=== PATIENT | male | born 1965 | race African-American/Black ===

== ENCOUNTER 2016-10-04 16:39 | Emergency (ER) | payer MEDICAID ==
[~2016-10-04] VITALS: Ht 180.3 cm; Wt 106.6 kg
[2016-10-04] MEDS ORDERED: [UNRECOGNIZED DRUG - OTHER] (17:05)
[2016-10-04 17:39] VITALS: BP_SYST 126; BP_SYST 131; BP_DIAS 79; BP_DIAS 81
[2016-10-04 18:23] LABS: TROPONIN I < 0.30 ng/mL (<=0.30)
[2016-10-04 18:55] LABS: CKMB 3.5 ng/mL (< 6.7)
--- NOTE | 2016-10-04 19:15 | Emergency Room Report ---
History of Present Illness General Chief Complaint: Pain Source: Patient Present Illness HPI 50-year-old male presents emergency department complaining of left forearm and upper arm pain in addition to intermittent right arm pain x4 days. Patient denies fall, trauma, erythema, bruising,swelling, increased temperature palpation, nausea, vomiting, strenuous activity, recent travel or hx of blood clots. Patient is worried that he is having a cardiac event. Patient reports history of high blood pressure, and cardiac problems that run in the family. Patient denies nausea, vomiting, abdominal pain. Patient denies hematuria or changes in color of the urine. Patient denies taking cholesterol medication. Denies CP, Palpitations, weakness, LOC, AMS, dizziness, Changes in Vision, Sensation, paresthesias, or a sudden severe headache. Allergies: Coded Allergies: No Known Allergies (Unverified , 10/04/16) Patient History Past Medical History: see triage record Past Surgical History: none Pertinent Family History: none Reviewed Nursing Documentation: PMH: Agreed, PSxH: Agreed Nursing Documentation-PMH Past Medical History: No History, Except For Hx Hypertension: Yes Review of Systems All Other Systems: negative except mentioned in HPI Physical Exam Vital Signs Date Time Temp Pulse Resp B/P Pulse Ox O2 Delivery O2 Flow Rate FiO2 10/04/16 17:02 98.4 72 20 131/81 98 Room Air Sp02 EP Interpretation: reviewed, normal General Appearance: no apparent distress, alert, GCS 15, non-toxic Head: normocephalic, atraumatic Eyes: bilateral eye PERRL, bilateral eye normal inspection ENT: hearing grossly normal, normal pharynx, no angioedema, normal voice Neck: full range of motion, supple/symm/no masses Respiratory: chest non-tender, lungs clear, normal breath sounds, speaking full sentences Cardiovascular #1: regular rate, rhythm, no edema Cardiovascular #2: 2+ radial (R), 2+ radial (L) Gastrointestinal: normal bowel sounds, non tender, soft, no guarding, no rebound Rectal: deferred Genitourinary: normal inspection, no CVA tenderness Musculoskeletal: back normal, gait/station normal, normal range of motion, non- tender, no calf tenderness, other - non tender, no swelling , no erythema, no bruising pt is NVI to both extremities and has good capillary refill, 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 Jasso is my supervising Physician whom patient management has been discussed with. Diagnostic Impression: Primary Impression: Myositis of forearm Qualified Codes: M60.9 - Myositis, unspecified ER Course Pt. presents to the ED c/o left forearm and right UE pain x 2 days. Ddx considered but are not limited to LA, contusion, DVT, PE, ACS, Shoulder strain, myositis, aortic dissection. Vital signs: are WNL, pt. is afebrile H&PE are most consistent with muscle pain, will r/o cardiac cause ORDERS: - EK BPM NSR no acute ST changes, not given ASA in ED. - Interpreted by Dr. Jasso -CMP: WNL -CK-MB: WNL -Total CK: mildly elevated at 778 -Troponins: WNL ED INTERVENTIONS: - none required at this time. pt. given re-assurance, and instructed to f/u with pcp for further evaluation as he is stable for continued outpatient evaluation of his CC. DISCHARGE: At this time pt. is stable for d/c to home. Will provide printed patient care instructions, and any necessary prescriptions. Care plan and follow up instructions have been discussed with the patient prior to discharge. Labs Test 10/04/16 18:00 Total Creatine Kinase 778 U/L (26-140) Creatine Kinase MB 3.5 ng/mL (< 6.7) Creatine Kinase MB Relative Index 0.4 Troponin I < 0.30 ng/mL (<=0.30) EKG Diagnostic Results Rate: normal - 67 BPM Rhythm: NSR ST Segments: no acute changes ASA given to the pt in ED: No PA Scribe Text interpreted by Dr. Jasso Last Vital Signs Date Time Temp Pulse Resp B/P Pulse Ox O2 Delivery O2 Flow Rate FiO2 10/04/16 17:39 20 131/81 98 Room Air 10/04/16 17:02 98.4 72 Disposition: HOME, SELF-CARE Condition: Stable Scripts Acetaminophen* (TYLENOL EXTRA STRENGTH*) 500 Mg Tablet 500 MG ORAL Q6H, #30 TAB 0 Refills Prov: Hanh Sears 10/04/16 Referrals: NON PHYSICIAN (PCP) Patient Instructions: Muscle Pain, Adult Additional Instructions: Take medications as directed. Follow up with PCP in 3-5 days . Return sooner to ED if new symptoms occur, or current symptoms become worse. Hanh Sears Oct 04, 2016 19:15
[2016-10-04 19:24] VITALS: BP 126/79
[2016-10-04] MEDS ORDERED: TYLENOL EXTRA500 MG ORAL (19:25)
--- NOTE | 2016-10-05 17:43 | Cardiology Report ---
APPROVED REPORT EKG Measurement Heart [id number] Normal sinus rhythm Normal ECG
== END 2016-10-04 19:44 | disposition home or self-care (01) ==
LOC: EMR 18:40
DX: M60.9 Myositis, unspecified (principal); I10 Essential (primary) hypertension
CPT/HCPCS: 36415; 82550; 82553; 84484; 93005; 99283

== ENCOUNTER 2016-11-22 08:05 | Emergency (ER) | payer MEDICAID ==
[~2016-11-22] VITALS: Ht 180.3 cm; Wt 105.2 kg
[~2016-11-22 08:05] MED LIST: TYLENOL EXTRA500 MG ORAL; [UNRECOGNIZED DRUG - OTHER]
[2016-11-22] MEDS ORDERED: TYLENOL EXTRA500 MG ORAL (08:50)
[2016-11-22] MEDS ORDERED: CYCLOBENZAPRINE10 MG ORAL (08:50)
[2016-11-22 09:00] VITALS: BP_SYST 120; BP_SYST 126; BP_DIAS 80; BP_DIAS 85
--- NOTE | 2016-11-22 09:53 | Emergency Room Report ---
History of Present Illness General Chief Complaint: Back Pain-No Injury Source: Patient Present Illness HPI 50-year-old male presents ED complaining of back pain. Notes having intermittent back pain since February of last year. Pain is throbbing, 5/10, localized to the right side radiating down right leg. Worse with twisting and bending. No other aggravating or relieving factors. Patient states pain has gotten recently worse as he has been moving furniture. Denies any dysuria or hematuria. Denies flank pain. Denies any bowel or bladder incontinence. Denies any leg weakness. Allergies: Coded Allergies: No Known Allergies (Unverified , 10/04/16) Patient History Past Medical History: HTN Past Surgical History: none Pertinent Family History: none Social History: Denies: alcohol use, drug use, smoking Immunizations: UTD Reviewed Nursing Documentation: PMH: Agreed, PSxH: Agreed Nursing Documentation-PMH Past Medical History: No History, Except For Hx Hypertension: Yes Review of Systems All Other Systems: negative except mentioned in HPI Physical Exam Vital Signs Date Time Temp Pulse Resp B/P Pulse Ox O2 Delivery O2 Flow Rate FiO2 11/22/16 08:23 98.1 66 14 133/88 98 Room Air Sp02 EP Interpretation: reviewed, normal General Appearance: no apparent distress, alert, GCS 15, non-toxic Head: normocephalic Eyes: bilateral eye PERRL, bilateral eye normal inspection ENT: normal ENT inspection Neck: normal inspection Respiratory: chest non-tender, lungs clear, normal breath sounds, speaking full sentences Cardiovascular #1: regular rate, rhythm, no edema Gastrointestinal: normal inspection Rectal: deferred Genitourinary: no CVA tenderness, no vertebral tenderness Musculoskeletal: tender - paraspinal Neurologic: alert, oriented x3, responsive, motor strength/tone normal, sensory intact, speech normal Psychiatric: normal inspection Skin: normal inspection Lymphatic: normal inspection Medical Decision Making Diagnostic Impression: Primary Impression: Back pain Qualified Codes: M54.41 - Lumbago with sciatica, right side; M54.42 - Lumbago with sciatica, left side; G89.29 - Other chronic pain ER Course Hospital Course 50-year-old male presents ED complaining of lower back pain. No evidence of trauma Differential diagnoses include: pyelonephritis, kidney stone, muscle strain, Lspine fracture Clinical course Patient placed on stretcher. After initial history physical exam reveals a middle-aged male in no acute distress. There is no vertebral body tenderness. No flank pain. No signs of bruising. No abdominal pain. Pain is paraspinal to the right lower back. Pain is likely muscular. No need for imaging at this time. Suspicion for renal pathology is low given location. Reassurance given Diagnosis - back pain Stable and discharged to home with prescription for tylenol, Flexeril. Followup with PMD. Return to ED if symptoms recur or worsen Last Vital Signs Date Time Temp Pulse Resp B/P Pulse Ox O2 Delivery O2 Flow Rate FiO2 11/22/16 08:23 98.1 66 14 133/88 98 Room Air Status: improved Disposition: HOME, SELF-CARE Condition: Stable Scripts Cyclobenzaprine Hcl* (FLEXERIL*) 10 Mg Tablet 10 MG ORAL TID Y for Muscle Spasm, #20 TAB Prov: PAYAM MORENO M.D. 11/22/16 Acetaminophen* (TYLENOL EXTRA STRENGTH*) 500 Mg Tablet 500 MG ORAL Q8H Y for Prn Headache/Temp > 101, #30 TAB 0 Refills Prov: PAYAM MORENO M.D. 11/22/16 Referrals: NON PHYSICIAN (PCP) Patient Instructions: Back Pain, Adult PAYAM MORENO M.D. Nov 22, 2016 09:53
== END 2016-11-22 09:05 | disposition home or self-care (01) ==
LOC: EMR 08:35
DX: M54.41 Lumbago with sciatica, right side (principal); M54.42 Lumbago with sciatica, left side; I10 Essential (primary) hypertension
CPT/HCPCS: 99284

== ENCOUNTER 2017-08-19 17:32 | Inpatient (IN) | payer MEDICAID ==
[~2017-08-19] VITALS: Ht 180.3 cm; Wt 108.9 kg
[~2017-08-19 17:32] MED LIST changes: +CYCLOBENZAPRINE10 MG ORAL
[2017-08-19 18:00] VITALS: BP 134/96
[2017-08-19] MEDS ORDERED: Albuterol/Ipratropium 3ml neb HHN ONE (18:00)
[2017-08-19] MEDS ORDERED: Enoxaparin 100mg Inj SUBQ ONE (18:30)
[2017-08-19 18:34] LABS: BASOPHILS % (AUTO) 2.4 % (0.0-2.0); EOSINOPHILS % (AUTO) 1.4 % (0.0-3.0); LYMPHOCYTES % (AUTO) 44.9 % (20.0-45.0); MEAN CORPUSCULAR HEMOGLOBIN 22.6 PG (27.0-31.0); MEAN CORPUSCULAR HGB CONC 30.5 G/DL (32.0-36.0); MEAN CORPUSCULAR VOLUME 74 FL (80-99); MEAN PLATELET VOLUME 6.3 FL (6.5-10.1); MONOCYTES % (AUTO) 7.4 % (1.0-10.0); NEUTROPHILS % (AUTO) 43.9 % (45.0-75.0); PLATELET COUNT 282 K/UL (150-450); RED BLOOD COUNT 5.89 M/UL (4.70-6.10); RED CELL DISTRIBUTION WIDTH 13.3 % (11.6-14.8)
[2017-08-19 18:47] LABS: PROTHROMBIN TIME 10.1 SEC (9.30-11.50)
[2017-08-19 18:50] LABS: ANION GAP 9 mmol/L (5-15); CALCIUM 9.5 MG/DL (8.5-10.1); CARBON DIOXIDE 28 MMOL/L (21-32); CHLORIDE 102 MMOL/L (98-107); CREATININE 1.4 MG/DL (0.55-1.30); GLOMERULAR FILTRATION RATE > 60 mL/min (>60); POTASSIUM 4.2 MMOL/L (3.5-5.1); SODIUM 139 MMOL/L (136-145)
[2017-08-19 19:02] LABS: ALANINE AMINOTRANSFERASE 43 U/L (12-78); ASPARTATE AMINO TRANSFERASE 31 U/L (15-37); TOTAL PROTEIN 8.3 G/DL (6.4-8.2)
--- NOTE | 2017-08-19 19:46 | Emergency Room Report ---
History of Present Illness General Chief Complaint: Chest Pain Source: Patient Present Illness HPI Patient 51-year-old male presented after increased left sided chest pain. Patient had onset of symptoms approximately 2 hour prior to arrival. Patient reports having a tight sensation in his chest. He denied prior cardiac history but states that he had prior history of hypertension high cholesterol. Patient nonsmoker. He states he took aspirin prior to arrival. He denies any fever. He had not been coughing.. he denies any leg pain or swelling. Pain is described as a pressure sensation. Allergies: Coded Allergies: No Known Allergies (Unverified , 10/04/16) Patient History Past Medical History: see triage record Reviewed Nursing Documentation: PMH: Agreed, PSxH: Agreed Nursing Documentation-PMH Hx Hypertension: Yes Review of Systems All Other Systems: negative except mentioned in HPI Physical Exam Vital Signs Date Time Temp Pulse Resp B/P (MAP) Pulse Ox O2 Delivery O2 Flow Rate FiO2 08/19/17 17:41 97.9 95 20 150/89 99 Room Air 08/19/17 18:00 99 Sp02 EP Interpretation: reviewed, normal General Appearance: normal inspection, well appearing, no apparent distress, alert, GCS 15 Head: atraumatic ENT: normal ENT inspection, hearing grossly normal, normal voice Neck: normal inspection, full range of motion, supple, no bony tend Respiratory: normal inspection, lungs clear, normal breath sounds, no respiratory distress, no retraction, no wheezing Cardiovascular #1: regular rate, rhythm, no edema Gastrointestinal: normal inspection, normal bowel sounds, non tender, soft, no guarding, no hernia Genitourinary: no CVA tenderness Musculoskeletal: normal inspection, back normal, normal range of motion Neurologic: normal inspection, alert, oriented x3, responsive, 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 Differential diagnosis included but was not limited to acute coronary syndrome, pulmonary embolism, pneumonia, aortic dissection, shingles, pneumothorax, aortic dissection, esophageal rupture, pericarditis. Because of complexity of patient's case laboratory testing and imaging studies were ordered.Patient was given Lovenox subcutaneous. Patient was Dr. horn for [facility]. The patient will be transferred for continuity of care. The patient insurance company was unable to arrange a timely transfer. The patient will be [facility] Labs Test 08/19/17 18:00 08/19/17 18:11 Urine Opiates Screen Negative (NEGATIVE) Urine Barbiturates Screen Negative (NEGATIVE) Phencyclidine (PCP) Screen Negative (NEGATIVE) Urine Amphetamines Screen Negative (NEGATIVE) Urine Benzodiazepines Screen Negative (NEGATIVE) Urine Cocaine Screen Negative (NEGATIVE) Urine Marijuana (THC) Screen Negative (NEGATIVE) White Blood Count 6.0 K/UL (4.8-10.8) Red Blood Count 5.89 M/UL (4.70-6.10) Hemoglobin 13.3 G/DL (14.2-18.0) Hematocrit 43.5 % (42.0-52.0) Mean Corpuscular Volume 74 FL (80-99) Mean Corpuscular Hemoglobin 22.6 PG (27.0-31.0) Mean Corpuscular Hemoglobin Concent 30.5 G/DL (32.0-36.0) Red Cell Distribution Width 13.3 % (11.6-14.8) Platelet Count 282 K/UL (150-450) Mean Platelet Volume 6.3 FL (6.5-10.1) Neutrophils (%) (Auto) 43.9 % (45.0-75.0) Lymphocytes (%) (Auto) 44.9 % (20.0-45.0) Monocytes (%) (Auto) 7.4 % (1.0-10.0) Eosinophils (%) (Auto) 1.4 % (0.0-3.0) Basophils (%) (Auto) 2.4 % (0.0-2.0) Prothrombin Time 10.1 SEC (9.30-11.50) Prothromb Time International Ratio 1.0 (0.9-1.1) Activated Partial Thromboplast Time 28 SEC (23-33) D-Dimer 0.76 mg/L FEU (0.00-0.49) Sodium Level 139 MMOL/L (136-145) Potassium Level 4.2 MMOL/L (3.5-5.1) Chloride Level 102 MMOL/L (98-107) Carbon Dioxide Level 28 MMOL/L (21-32) Anion Gap 9 mmol/L (5-15) Blood Urea Nitrogen 11 mg/dL (7-18) Creatinine 1.4 MG/DL (0.55-1.30) Estimat Glomerular Filtration Rate > 60 mL/min (>60) Glucose Level 109 MG/DL (74-106) Calcium Level 9.5 MG/DL (8.5-10.1) Total Bilirubin 0.4 MG/DL (0.2-1.0) Aspartate Amino Transf (AST/SGOT) 31 U/L (15-37) Alanine Aminotransferase (ALT/SGPT) 43 U/L (12-78) Alkaline Phosphatase 82 U/L (46-116) Troponin I 0.000 ng/mL (0.000-0.056) Pro-B-Type Natriuretic Peptide 5 pg/mL (0-125) Total Protein 8.3 G/DL (6.4-8.2) Albumin 4.2 G/DL (3.4-5.0) Globulin 4.1 g/dL Albumin/Globulin Ratio 1.0 (1.0-2.7) EKG Diagnostic Results Rate: normal Rhythm: NSR ST Segments: no acute changes Rhythm Strip Diag. Results EP Interpretation: yes Rhythm: NSR, no PVC's, no ectopy Last Vital Signs Date Time Temp Pulse Resp B/P (MAP) Pulse Ox O2 Delivery O2 Flow Rate FiO2 08/19/17 18:05 21 08/19/17 18:05 100 20 99 Room Air 08/19/17 18:00 98.1 134/96 Status: unchanged Disposition: XFER SHT-TRM HOSP Condition: Serious Referrals: [facility],REFERRING (PCP) Nahid Palacio Aug 19, 2017 19:46
[2017-08-19] MEDS ORDERED: dilTIAZem HCl 25mg/5ml Inj IV PRN (21:45)
[2017-08-19] MEDS ORDERED: Miralax 17gm pkt ORAL PRN (21:45)
[2017-08-19] MEDS ORDERED: Nitroglycerin Subl 0.4mg tab SL PRN (21:45)
[2017-08-19] MEDS ORDERED: Morphine Sulfate 2mg/ml Inj IVP PRN (21:45)
[2017-08-19] MEDS ORDERED: Ketorolac 30mg Inj IV PRN (21:45)
[2017-08-19] MEDS ORDERED: Enalaprilat 2.5mg/2ml Inj IV PRN (21:45)
[2017-08-19] MEDS ORDERED: Albuterol/Ipratropium 3ml neb HHN PRN (21:45)
[2017-08-19 22:19] VITALS: BP 134/96
[2017-08-20] VITALS (7 sets, daily range): BP systolic 136–147; BP diastolic 74–99
[2017-08-20 08:16] LABS: BASOPHILS % (AUTO) 1.5 % (0.0-2.0); EOSINOPHILS % (AUTO) 2.6 % (0.0-3.0); LYMPHOCYTES % (AUTO) 50.6 % (20.0-45.0); MEAN CORPUSCULAR HEMOGLOBIN 24.1 PG (27.0-31.0); MEAN CORPUSCULAR HGB CONC 32.9 G/DL (32.0-36.0); MEAN CORPUSCULAR VOLUME 73 FL (80-99); MEAN PLATELET VOLUME 6.6 FL (6.5-10.1); NEUTROPHILS % (AUTO) 38.2 % (45.0-75.0); PLATELET COUNT 294 K/UL (150-450); RED BLOOD COUNT 6.14 M/UL (4.70-6.10); WHITE BLOOD COUNT 6.5 K/UL (4.8-10.8)
[2017-08-20 08:34] LABS: PROTHROMBIN TIME 10.2 SEC (9.30-11.50)
[2017-08-20] MEDS: Aspirin Baby 81mg ORAL SCH (08:55)
[2017-08-20] MEDS: Heparin 5000 units/ml inj SUBQ SCH ×2 (09:00→22:36)
[2017-08-20 09:07] LABS: CHOLESTEROL 226 MG/DL (< 200); CHOLESTEROL/HDL RATIO 5.7 (3.3-4.4); THYROID STIMULATING HORMONE 3.774 uiU/mL (0.358-3.740)
[2017-08-20 09:09] LABS: CRP QUANT < 0.4 mg/dL (0.00-0.90)
--- NOTE | 2017-08-20 10:02 | Diagnostic Imaging Report ---
Indication: Shortness of breath Technique: XRAY CHEST 1 V Comparison: None Findings: The cardiomediastinal silhouette is within normal limits. There is no focal consolidation, pneumothorax or pleural effusion. Osseous structures demonstrate no acute abnormality. Impression: No acute cardiopulmonary disease.
--- NOTE | 2017-08-20 10:33 | History and Physical ---
History of Present Illness General Date patient seen: Aug 19, 2017 Reason for Hospitalization: Chest Pain Present Illness HPI 51-year-old male with hx of HTN, presented after increased left sided chest pain. Patient had onset of symptoms approximately 2 hour prior to arrival. Patient reports having a tight sensation in his chest. He is admitted to telemetry to rule out ACS. Allergies: Coded Allergies: No Known Allergies (Unverified , 10/04/16) Medication History Scheduled Acetaminophen* (Tylenol Extra Strength*), 500 MG ORAL Q6H Scheduled PRN Acetaminophen* (Tylenol Extra Strength*), 500 MG ORAL Q8H PRN for Prn Headache/ Temp > 101 Cyclobenzaprine Hcl* (Flexeril*), 10 MG ORAL TID PRN for Muscle Spasm Miscellaneous Medications [high blood ], (Reported) Patient History Healthcare decision maker Resuscitation status Do Not Resuscitate Advanced Directive on File Past Medical/Surgical History Past Medical/Surgical History: (1) Hypertension Review of Systems Cardiovascular: Reports: chest pain All Other Systems: negative except mentioned in HPI Physical Exam General Appearance: WD/WN Lines, tubes and drains: peripheral HEENT: normocephalic, anicteric Neck: non-tender, normal alignment Respiratory/Chest: chest wall non-tender, lungs clear Cardiovascular/Chest: normal peripheral pulses, normal rate Genitourinary/Rectal: normal genital exam Extremities: normal range of motion, non-tender Last 24 Hour Vital Signs Date Time Temp Pulse Resp B/P (MAP) Pulse Ox O2 Delivery O2 Flow Rate FiO2 08/20/17 08:00 97.8 81 19 147/99 98 Room Air 08/20/17 05:05 97.7 60 18 142/74 96 Room Air 08/20/17 04:00 70 08/20/17 04:00 98.4 64 18 142/74 95 Room Air 08/20/17 00:00 71 08/19/17 22:19 98.1 94 20 134/96 99 Room Air 08/19/17 22:18 89 20 143/87 99 Room Air 08/19/17 18:05 21 08/19/17 18:05 100 20 99 Room Air 21 08/19/17 18:05 95 20 99 Room Air 21 08/19/17 18:04 95 20 Room Air 21 08/19/17 18:00 94 13 Room Air 99 08/19/17 18:00 98.1 94 13 134/96 99 Room Air 08/19/17 17:41 97.9 95 20 150/89 99 Room Air Intake and Output 08/20/17 08/21/17 19:00 07:00 # Bowel Movements 1 Laboratory Tests Test 08/19/17 18:00 08/19/17 18:11 08/20/17 07:37 Urine Opiates Screen Negative (NEGATIVE) Urine Barbiturates Screen Negative (NEGATIVE) Phencyclidine (PCP) Screen Negative (NEGATIVE) Urine Amphetamines Screen Negative (NEGATIVE) Urine Benzodiazepines Screen Negative (NEGATIVE) Urine Cocaine Screen Negative (NEGATIVE) Urine Marijuana (THC) Screen Negative (NEGATIVE) White Blood Count 6.0 K/UL (4.8-10.8) 6.5 K/UL (4.8-10.8) Red Blood Count 5.89 M/UL (4.70-6.10) 6.14 M/UL (4.70-6.10) H Hemoglobin 13.3 G/DL (14.2-18.0) L 14.8 G/DL (14.2-18.0) Hematocrit 43.5 % (42.0-52.0) 45.0 % (42.0-52.0) Mean Corpuscular Volume 74 FL (80-99) L 73 FL (80-99) L Mean Corpuscular Hemoglobin 22.6 PG (27.0-31.0) L 24.1 PG (27.0-31.0) L Mean Corpuscular Hemoglobin Concent 30.5 G/DL (32.0-36.0) L 32.9 G/DL (32.0-36.0) Red Cell Distribution Width 13.3 % (11.6-14.8) 13.0 % (11.6-14.8) Platelet Count 282 K/UL (150-450) 294 K/UL (150-450) Mean Platelet Volume 6.3 FL (6.5-10.1) L 6.6 FL (6.5-10.1) Neutrophils (%) (Auto) 43.9 % (45.0-75.0) L 38.2 % (45.0-75.0) L Lymphocytes (%) (Auto) 44.9 % (20.0-45.0) 50.6 % (20.0-45.0) H Monocytes (%) (Auto) 7.4 % (1.0-10.0) 7.0 % (1.0-10.0) Eosinophils (%) (Auto) 1.4 % (0.0-3.0) 2.6 % (0.0-3.0) Basophils (%) (Auto) 2.4 % (0.0-2.0) H 1.5 % (0.0-2.0) Prothrombin Time 10.1 SEC (9.30-11.50) 10.2 SEC (9.30-11.50) Prothromb Time International Ratio 1.0 (0.9-1.1) 1.0 (0.9-1.1) Activated Partial Thromboplast Time 28 SEC (23-33) 30 SEC (23-33) D-Dimer 0.76 mg/L FEU (0.00-0.49) H Sodium Level 139 MMOL/L (136-145) Potassium Level 4.2 MMOL/L (3.5-5.1) Chloride Level 102 MMOL/L (98-107) Carbon Dioxide Level 28 MMOL/L (21-32) Anion Gap 9 mmol/L (5-15) Blood Urea Nitrogen 11 mg/dL (7-18) Creatinine 1.4 MG/DL (0.55-1.30) H Estimat Glomerular Filtration Rate > 60 mL/min (>60) Glucose Level 109 MG/DL (74-106) H Calcium Level 9.5 MG/DL (8.5-10.1) Total Bilirubin 0.4 MG/DL (0.2-1.0) Aspartate Amino Transf (AST/SGOT) 31 U/L (15-37) Alanine Aminotransferase (ALT/SGPT) 43 U/L (12-78) Alkaline Phosphatase 82 U/L (46-116) Troponin I 0.000 ng/mL (0.000-0.056) 0.002 ng/mL (0.000-0.056) Pro-B-Type Natriuretic Peptide 5 pg/mL (0-125) Total Protein 8.3 G/DL (6.4-8.2) H Albumin 4.2 G/DL (3.4-5.0) Globulin 4.1 g/dL Albumin/Globulin Ratio 1.0 (1.0-2.7) C-Reactive Protein, Quantitative < 0.4 mg/dL (0.00-0.90) Triglycerides Level 143 MG/DL (30-150) Cholesterol Level 226 MG/DL (< 200) H LDL Cholesterol 152 mg/dL (<100) H HDL Cholesterol 40 MG/DL (40-60) Cholesterol/HDL Ratio 5.7 (3.3-4.4) H Thyroid Stimulating Hormone (TSH) 3.774 uiU/mL (0.358-3.740) Height (Feet): 5 Height (Inches): 11.00 Weight (Pounds): 240 Medications Current Medications Medications (Trade) Dose Ordered Sig/Cris Route PRN Reason Start Time Stop Time Status Last Admin Dose Admin Acetaminophen (Tylenol) 650 mg Q4H PRN ORAL T>100.5 08/19/17 21:45 09/18/17 21:44 Albuterol/ Ipratropium (Albuterol/ Ipratropium) 3 ml Q4H PRN HHN Shortness of Breath 08/19/17 21:45 08/24/17 21:44 Aspirin (ASA) 162 mg DAILY ORAL 08/20/17 09:00 09/19/17 08:59 08/20/17 08:55 Diltiazem HCl (Cardizem) 10 mg EVERY HOUR PRN IV heart rate more than 120, 08/19/17 21:45 09/18/17 21:44 Enalaprilat (Vasotec) 2.5 mg Q6H PRN IV sbp more than 160 08/19/17 21:45 09/18/17 21:44 Heparin Sodium (Porcine) (Heparin 5000 units/ml) 5,000 units EVERY 12 HOURS SUBQ 08/20/17 09:00 09/19/17 08:59 08/20/17 09:00 Morphine Sulfate (Morphine Sulfate) 2 mg Q4H PRN IVP Severe Pain (Pain Scale 7-10) 08/19/17 21:45 08/26/17 21:44 Nitroglycerin (Ntg) 0.4 mg Q5MIN X 3 DOSES PRN SL Prn Chest Pain 08/19/17 21:45 09/18/17 21:44 Ondansetron HCl (Zofran) 4 mg Q6H PRN IVP Nausea & Vomiting 08/19/17 21:45 09/18/17 21:44 Polyethylene Glycol (Miralax) 17 gm DAILYPRN PRN ORAL Constipation 08/19/17 21:45 09/18/17 21:44 Temazepam (Restoril) 15 mg HSPRN PRN ORAL Insomnia 08/19/17 21:45 08/26/17 21:44 Assessment/Plan Problem List: (1) ACS (acute coronary syndrome) ICD Codes: I24.9 - Acute ischemic heart disease, unspecified SNOMED: 357651221 (2) Hypertension ICD Codes: I10 - Essential (primary) hypertension SNOMED: 84195410 Assessment/Plan serial ekg, troponin cardiology to see symptomatic treatment LUCIA BANG Aug 20, 2017 10:33
--- NOTE | 2017-08-20 10:34 | Pulmonology Progress Note ---
Assessment/Plan Problems: (1) ACS (acute coronary syndrome) (2) Hypertension Assessment/Plan doing better check echo troponin negative times two awaiting cardio evaluation. Subjective ROS Limited/Unobtainable: No Interval Events: no episodes of chest pain any more Allergies: Coded Allergies: No Known Allergies (Unverified , 10/04/16) Objective Last 24 Hour Vital Signs Date Time Temp Pulse Resp B/P (MAP) Pulse Ox O2 Delivery O2 Flow Rate FiO2 08/20/17 08:00 97.8 81 19 147/99 98 Room Air 08/20/17 05:05 97.7 60 18 142/74 96 Room Air 08/20/17 04:00 70 08/20/17 04:00 98.4 64 18 142/74 95 Room Air 08/20/17 00:00 71 08/19/17 22:19 98.1 94 20 134/96 99 Room Air 21 08/19/17 22:18 89 20 143/87 99 Room Air 08/19/17 18:05 21 08/19/17 18:05 100 20 99 Room Air 21 08/19/17 18:05 95 20 99 Room Air 21 08/19/17 18:04 95 20 Room Air 21 08/19/17 18:00 94 13 Room Air 99 08/19/17 18:00 98.1 94 13 134/96 99 Room Air 08/19/17 17:41 97.9 95 20 150/89 99 Room Air Intake and Output 08/20/17 08/21/17 19:00 07:00 # Bowel Movements 1 General Appearance: WD/WN HEENT: normocephalic, anicteric Respiratory/Chest: chest wall non-tender, lungs clear, chest wall tender Cardiovascular: normal peripheral pulses, regularly irregular Abdomen: normal bowel sounds, no organomegaly Neurologic/Psychiatric: connie scratcher II-XII grossly normal, no motor/sensory deficits, alert Laboratory Tests 08/19/17 18:00: Urine Opiates Screen Negative, Urine Barbiturates Screen Negative, Phencyclidine (PCP) Screen Negative, Urine Amphetamines Screen Negative, Urine Benzodiazepines Screen Negative, Urine Cocaine Screen Negative, Urine Marijuana (THC) Screen Negative 08/19/17 18:11: White Blood Count 6.0, Red Blood Count 5.89, Hemoglobin 13.3L, Hematocrit 43.5, Mean Corpuscular Volume 74L, Mean Corpuscular Hemoglobin 22.6L, Mean Corpuscular Hemoglobin Concent 30.5L, Red Cell Distribution Width 13.3, Platelet Count 282, Mean Platelet Volume 6.3L, Neutrophils (%) (Auto) 43.9L, Lymphocytes (%) (Auto) 44.9, Monocytes (%) (Auto) 7.4, Eosinophils (%) (Auto) 1.4, Basophils (%) (Auto) 2.4H, Prothrombin Time 10.1, Prothromb Time International Ratio 1.0, Activated Partial Thromboplast Time 28, D-Dimer 0.76H, Sodium Level 139, Potassium Level 4.2, Chloride Level 102, Carbon Dioxide Level 28, Anion Gap 9, Blood Urea Nitrogen 11, Creatinine 1.4H, Estimat Glomerular Filtration Rate > 60, Glucose Level 109H, Calcium Level 9.5, Total Bilirubin 0.4 , Aspartate Amino Transf (AST/SGOT) 31, Alanine Aminotransferase (ALT/SGPT) 43, Alkaline Phosphatase 82, Troponin I 0.000, Pro-B-Type Natriuretic Peptide 5, Total Protein 8.3H, Albumin 4.2, Globulin 4.1, Albumin/Globulin Ratio 1.0 08/20/17 07:37: White Blood Count 6.5, Red Blood Count 6.14H, Hemoglobin 14.8, Hematocrit 45.0, Mean Corpuscular Volume 73L, Mean Corpuscular Hemoglobin 24.1L, Mean Corpuscular Hemoglobin Concent 32.9, Red Cell Distribution Width 13.0, Platelet Count 294, Mean Platelet Volume 6.6, Neutrophils (%) (Auto) 38.2L, Lymphocytes ( %) (Auto) 50.6H, Monocytes (%) (Auto) 7.0, Eosinophils (%) (Auto) 2.6, Basophils (%) (Auto) 1.5, Prothrombin Time 10.2, Prothromb Time International Ratio 1.0, Activated Partial Thromboplast Time 30, Troponin I 0.002, C-Reactive Protein, Quantitative < 0.4, Triglycerides Level 143, Cholesterol Level 226H, LDL Cholesterol 152H, HDL Cholesterol 40, Cholesterol/HDL Ratio 5.7H, Thyroid Stimulating Hormone (TSH) 3.774H Current Medications Medications (Trade) Dose Ordered Sig/Cris Route PRN Reason Start Time Stop Time Status Last Admin Dose Admin Acetaminophen (Tylenol) 650 mg Q4H PRN ORAL T>100.5 08/19/17 21:45 09/18/17 21:44 Albuterol/ Ipratropium (Albuterol/ Ipratropium) 3 ml Q4H PRN HHN Shortness of Breath 08/19/17 21:45 08/24/17 21:44 Aspirin (ASA) 162 mg DAILY ORAL 08/20/17 09:00 09/19/17 08:59 08/20/17 08:55 Diltiazem HCl (Cardizem) 10 mg EVERY HOUR PRN IV heart rate more than 120, 08/19/17 21:45 09/18/17 21:44 Enalaprilat (Vasotec) 2.5 mg Q6H PRN IV sbp more than 160 08/19/17 21:45 09/18/17 21:44 Heparin Sodium (Porcine) (Heparin 5000 units/ml) 5,000 units EVERY 12 HOURS SUBQ 08/20/17 09:00 09/19/17 08:59 08/20/17 09:00 Morphine Sulfate (Morphine Sulfate) 2 mg Q4H PRN IVP Severe Pain (Pain Scale 7-10) 08/19/17 21:45 08/26/17 21:44 Nitroglycerin (Ntg) 0.4 mg Q5MIN X 3 DOSES PRN SL Prn Chest Pain 08/19/17 21:45 09/18/17 21:44 Ondansetron HCl (Zofran) 4 mg Q6H PRN IVP Nausea & Vomiting 08/19/17 21:45 09/18/17 21:44 Polyethylene Glycol (Miralax) 17 gm DAILYPRN PRN ORAL Constipation 08/19/17 21:45 09/18/17 21:44 Temazepam (Restoril) 15 mg HSPRN PRN ORAL Insomnia 08/19/17 21:45 08/26/17 21:44 LUCIA BANG Aug 20, 2017 10:34
--- NOTE | 2017-08-20 15:37 | Cardiology Progress Note ---
Assessment/Plan Assessment/Plan trop neg ekg neg will repeat ekg in amd will review echo eill all ok then he may be dcd home with fuw with pmd as out pt [id number] Objective Last 24 Hour Vital Signs Date Time Temp Pulse Resp B/P (MAP) Pulse Ox O2 Delivery O2 Flow Rate FiO2 08/20/17 12:00 71 08/20/17 12:00 98.1 87 18 136/90 98 Room Air 08/20/17 08:00 97 08/20/17 08:00 97.8 81 19 147/99 98 Room Air 08/20/17 05:05 97.7 60 18 142/74 96 Room Air 08/20/17 04:00 70 08/20/17 04:00 98.4 64 18 142/74 95 Room Air 08/20/17 00:00 71 08/19/17 22:19 98.1 94 20 134/96 99 Room Air 21 08/19/17 22:18 89 20 143/87 99 Room Air 08/19/17 18:05 21 08/19/17 18:05 100 20 99 Room Air 21 08/19/17 18:05 95 20 99 Room Air 21 08/19/17 18:04 95 20 Room Air 21 08/19/17 18:00 94 13 Room Air 99 08/19/17 18:00 98.1 94 13 134/96 99 Room Air 08/19/17 17:41 97.9 95 20 150/89 99 Room Air Intake and Output 08/20/17 08/21/17 19:00 07:00 # Bowel Movements 1 Laboratory Tests Test 08/19/17 18:00 08/19/17 18:11 08/20/17 07:37 Urine Opiates Screen Negative (NEGATIVE) Urine Barbiturates Screen Negative (NEGATIVE) Phencyclidine (PCP) Screen Negative (NEGATIVE) Urine Amphetamines Screen Negative (NEGATIVE) Urine Benzodiazepines Screen Negative (NEGATIVE) Urine Cocaine Screen Negative (NEGATIVE) Urine Marijuana (THC) Screen Negative (NEGATIVE) White Blood Count 6.0 K/UL (4.8-10.8) 6.5 K/UL (4.8-10.8) Red Blood Count 5.89 M/UL (4.70-6.10) 6.14 M/UL (4.70-6.10) H Hemoglobin 13.3 G/DL (14.2-18.0) L 14.8 G/DL (14.2-18.0) Hematocrit 43.5 % (42.0-52.0) 45.0 % (42.0-52.0) Mean Corpuscular Volume 74 FL (80-99) L 73 FL (80-99) L Mean Corpuscular Hemoglobin 22.6 PG (27.0-31.0) L 24.1 PG (27.0-31.0) L Mean Corpuscular Hemoglobin Concent 30.5 G/DL (32.0-36.0) L 32.9 G/DL (32.0-36.0) Red Cell Distribution Width 13.3 % (11.6-14.8) 13.0 % (11.6-14.8) Platelet Count 282 K/UL (150-450) 294 K/UL (150-450) Mean Platelet Volume 6.3 FL (6.5-10.1) L 6.6 FL (6.5-10.1) Neutrophils (%) (Auto) 43.9 % (45.0-75.0) L 38.2 % (45.0-75.0) L Lymphocytes (%) (Auto) 44.9 % (20.0-45.0) 50.6 % (20.0-45.0) H Monocytes (%) (Auto) 7.4 % (1.0-10.0) 7.0 % (1.0-10.0) Eosinophils (%) (Auto) 1.4 % (0.0-3.0) 2.6 % (0.0-3.0) Basophils (%) (Auto) 2.4 % (0.0-2.0) H 1.5 % (0.0-2.0) Prothrombin Time 10.1 SEC (9.30-11.50) 10.2 SEC (9.30-11.50) Prothromb Time International Ratio 1.0 (0.9-1.1) 1.0 (0.9-1.1) Activated Partial Thromboplast Time 28 SEC (23-33) 30 SEC (23-33) D-Dimer 0.76 mg/L FEU (0.00-0.49) H Sodium Level 139 MMOL/L (136-145) Potassium Level 4.2 MMOL/L (3.5-5.1) Chloride Level 102 MMOL/L (98-107) Carbon Dioxide Level 28 MMOL/L (21-32) Anion Gap 9 mmol/L (5-15) Blood Urea Nitrogen 11 mg/dL (7-18) Creatinine 1.4 MG/DL (0.55-1.30) H Estimat Glomerular Filtration Rate > 60 mL/min (>60) Glucose Level 109 MG/DL (74-106) H Calcium Level 9.5 MG/DL (8.5-10.1) Total Bilirubin 0.4 MG/DL (0.2-1.0) Aspartate Amino Transf (AST/SGOT) 31 U/L (15-37) Alanine Aminotransferase (ALT/SGPT) 43 U/L (12-78) Alkaline Phosphatase 82 U/L (46-116) Troponin I 0.000 ng/mL (0.000-0.056) 0.002 ng/mL (0.000-0.056) Pro-B-Type Natriuretic Peptide 5 pg/mL (0-125) Total Protein 8.3 G/DL (6.4-8.2) H Albumin 4.2 G/DL (3.4-5.0) Globulin 4.1 g/dL Albumin/Globulin Ratio 1.0 (1.0-2.7) C-Reactive Protein, Quantitative < 0.4 mg/dL (0.00-0.90) Triglycerides Level 143 MG/DL (30-150) Cholesterol Level 226 MG/DL (< 200) H LDL Cholesterol 152 mg/dL (<100) H HDL Cholesterol 40 MG/DL (40-60) Cholesterol/HDL Ratio 5.7 (3.3-4.4) H Thyroid Stimulating Hormone (TSH) 3.774 uiU/mL (0.358-3.740) RICO CORRALES Aug 20, 2017 15:37
--- NOTE | 2017-08-21 02:30 | Consultation ---
DATE OF CONSULTATION: 08/20/2017 CARDIOLOGY CONSULTATION CONSULTING PHYSICIAN: Gerald Robins M.D. REFERRING PHYSICIAN: Maureen Moeller M.D. REASON FOR REFERRAL: Chest pain. HISTORY OF PRESENT ILLNESS: This is a middle-aged gentleman, who apparently was driving in a car last night. Yesterday afternoon, he started getting some nausea, which he describes as a feeling of car sickness. He subsequently developed some pain in the left arm and some tightness in the chest and presented to the emergency room. He has been admitted to the hospital. He is feeling much better, although the tightness has not gone away. He has to change his position little bit to see if he could reproduce and see if the pain is still present, which he found that it was. There is no PND or orthopnea. No palpitations. No dizziness or lightheadedness. He had been active until he injured his back a few months ago and since then has been limited in terms of the activity, but whatever activity that he does or capable of doing does not cause him to have to stop because of either chest pain or shortness of breath. PAST MEDICAL HISTORY: Positive for high blood pressure. He has recently been diagnosed with high cholesterol. No heart attack. No cancer, stroke, hepatitis, or tuberculosis. No asthma or emphysema. No ulcers, kidney problems, liver problems, thyroid problems, anemia, arthritis, blood clots, HIV, or any other medical problems, although he does have some back injury. The patient has sleep apnea, but cannot use any CPAP. SOCIAL HISTORY: He does not smoke or drink, never did. No drugs. 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 REVIEW OF SYSTEMS: GASTROINTESTINAL: He denies any nausea, vomiting, diarrhea, or constipation. GENITOURINARY: Negative. PULMONARY: He has some coughing that is there all the time. Cough is productive of clear sputum. CONSTITUTIONAL: Negative. NEUROLOGIC: Occasional cramping in the left side of the face. PHYSICAL EXAMINATION: GENERAL: Shows to be a muscular gentleman, in no respiratory distress. HEENT: Unremarkable. NECK: Supple. No jugular venous distention. LUNGS: Clear to auscultation and percussion. CARDIAC: S1 is normal. S2 is normal. Regular rate and rhythm. No heaves, thrills, gallops, or rubs are noted. ABDOMEN: Soft and nontender. Positive bowel sounds. EXTREMITIES: There is no clubbing, cyanosis, nor is there any edema. NEUROLOGICAL: He is awake, alert, responsive, in no apparent respiratory distress. LABORATORY AND DIAGNOSTIC DATA: Laboratory values, white count is 6.5, hemoglobin is 14.8, and platelet count 294,000. His sodium is 139, potassium 4.2, chloride 102, bicarbonate 28, BUN of 11, creatinine of 1.4, and glucose of 104. Troponin was negative. CRP is negative. ProBNP is 15. Total protein 8.3 and albumin of 4.3. Total cholesterol is 226 with a LDL of 152 and a TSH of 3.74. His INR is 1.0 and a PTT of 30. He had a chest x-ray performed in the emergency room that shows no acute cardiopulmonary processes. His EKG also that was performed shows sinus rhythm, normal QRS axis, no ST or T-wave abnormalities of any kind. ASSESSMENT: 1. Atypical pain. 2. Hyperlipidemia. 3. Hypertension. PLAN: Dr. Moeller, this patient was seen in cardiac consultation. The patient's pain has been persistent now, but to a very low degree and he seems to have to move around to identify the pain is present. Nevertheless, the electrocardiogram was negative. Two sets of cardiac enzymes negative and third set will be ordered. An EKG will be repeated. Echocardiogram was performed, we will review the echocardiogram. He does not seem to have any exertional related chest pains and certainly these pains do not get any worse with activity. Therefore, the likelihood of these pains being cardiac and ischemic in origin was extremely low. Possibilities of the musculoskeletal pain needs to be entertained. Nevertheless, at some point, he probably should undergo stress testing, possibly with his primary care physician. Gerald Robins M.D. DR: LALI JOB#: [id number] CC:
[2017-08-21 04:21] VITALS: BP 140/95
[2017-08-21] MEDS: Aspirin Baby 81mg ORAL SCH (08:34)
[2017-08-21 08:35] VITALS: BP 141/98
[2017-08-21] MEDS: Heparin 5000 units/ml inj SUBQ SCH (08:38)
[2017-08-21] MEDS ORDERED: ASPIRIN81 MG ORAL (12:32)
[2017-08-21] MEDS ORDERED: NORVASC2.5 MG ORAL ×3 (12:32→13:46)
--- NOTE | 2017-08-21 12:33 | Pulmonology Progress Note ---
Assessment/Plan Problems: (1) ACS (acute coronary syndrome) (2) Hypertension Assessment/Plan doing better check echo troponin negative times two cardio evaluation appreciated might go home if ok with cardiology Subjective ROS Limited/Unobtainable: No Constitutional: Reports: no symptoms HEENT: Repors: no symptoms Respiratory: Reports: no symptoms Allergies: Coded Allergies: No Known Allergies (Unverified , 10/04/16) Objective Last 24 Hour Vital Signs Date Time Temp Pulse Resp B/P (MAP) Pulse Ox O2 Delivery O2 Flow Rate FiO2 08/21/17 08:35 97.9 87 18 141/98 95 Room Air 08/21/17 08:35 87 141/98 08/21/17 08:00 97 08/21/17 04:21 97.5 66 20 140/95 97 Room Air 08/21/17 04:19 82 18 Room Air 21 08/21/17 03:50 74 08/20/17 23:52 75 08/20/17 23:48 97.7 68 19 139/95 96 Room Air 08/20/17 19:56 97.5 80 19 143/87 98 Room Air 08/20/17 19:54 91 08/20/17 16:09 71 136/90 08/20/17 16:00 97.5 79 19 143/99 99 Room Air 08/20/17 16:00 84 Intake and Output 08/21/17 08/22/17 19:00 07:00 Intake Total 360 ml Balance 360 ml Intake Oral 360 ml # Bowel Movements 1 Objective Lines, tubes and drains: peripheral HEENT: normocephalic, atraumatic Neck: non-tender, normal alignment Respiratory/Chest: chest wall non-tender, lungs clear Cardiovascular/Chest: normal peripheral pulses, regular rhythm, no gallop/ murmur Abdomen: normal bowel sounds, non tender Genitourinary/Rectal: normal genital exam Extremities: normal range of motion, non-tender Laboratory Tests 08/21/17 06:02: Troponin I 0.001 Current Medications Medications (Trade) Dose Ordered Sig/Cris Route PRN Reason Start Time Stop Time Status Last Admin Dose Admin Acetaminophen (Tylenol) 650 mg Q4H PRN ORAL T>100.5 08/19/17 21:45 09/18/17 21:44 Albuterol/ Ipratropium (Albuterol/ Ipratropium) 3 ml Q4H PRN HHN Shortness of Breath 08/19/17 21:45 08/24/17 21:44 Amlodipine Besylate (Norvasc) 2.5 mg DAILY ORAL 08/20/17 15:45 09/19/17 15:44 08/21/17 08:35 Aspirin (ASA) 162 mg DAILY ORAL 08/20/17 09:00 09/19/17 08:59 08/21/17 08:34 Diltiazem HCl (Cardizem) 10 mg EVERY HOUR PRN IV heart rate more than 120, 08/19/17 21:45 09/18/17 21:44 Enalaprilat (Vasotec) 2.5 mg Q6H PRN IV sbp more than 160 08/19/17 21:45 09/18/17 21:44 Heparin Sodium (Porcine) (Heparin 5000 units/ml) 5,000 units EVERY 12 HOURS SUBQ 08/20/17 09:00 09/19/17 08:59 08/21/17 08:38 Morphine Sulfate (Morphine Sulfate) 2 mg Q4H PRN IVP Severe Pain (Pain Scale 7-10) 08/19/17 21:45 08/26/17 21:44 Nitroglycerin (Ntg) 0.4 mg Q5MIN X 3 DOSES PRN SL Prn Chest Pain 08/19/17 21:45 09/18/17 21:44 Ondansetron HCl (Zofran) 4 mg Q6H PRN IVP Nausea & Vomiting 08/19/17 21:45 09/18/17 21:44 Polyethylene Glycol (Miralax) 17 gm DAILYPRN PRN ORAL Constipation 08/19/17 21:45 09/18/17 21:44 Temazepam (Restoril) 15 mg HSPRN PRN ORAL Insomnia 08/19/17 21:45 08/26/17 21:44 LUCIA BANG Aug 21, 2017 12:33
[2017-08-21 12:34] VITALS: BP 137/76
[2017-08-21] MEDS ORDERED: AMLODIPINE-ATO1 EA10 ORAL (13:41)
[2017-08-21] MEDS ORDERED: NORVASC5 MG ORAL (13:51)
--- NOTE | 2017-08-21 14:39 | Cardiology Report ---
APPROVED REPORT EXAM: Two-dimensional and M-mode echocardiogram with Doppler and color Doppler. INDICATION Left Ventricular Function M-Mode DIMENSIONS IVSd1.0 (0.7-1.1cm)Left Atrium (MM)3.9 (1.6-4.0cm) LVDd4.6 (3.5-5.6cm)Aortic Root2.6 (2.0-3.7cm) PWd0.8 (0.7-1.1cm)Aortic Cusp Exc.2.0 (1.5-2.0cm) LVDs2.5 (2.5-4.0cm) PWs1.4 cm Normal left ventricular chamber size, systolic function and wall motion. Left ventricular ejection fraction estimated to be 55-60 %. Concentric left ventricular hypertrophy. Anterior Echo-free space, may be due to pericardial fat or effusion. All other cardiac chamber sizes are within normal limits. Focal aortic valve sclerosis with adequate cusp excursion. Thickened mitral valve leaflets with normal excursion. Mild mitral annulus and aortic root calcification. Normal pulmonic valve structure. Normal tricuspid valve structure. IVC dilated at 2.0 cm with physiologic collapse, estimated RAP is 10 mmHg. A color flow and spectral Doppler study was performed and revealed: No aortic regurgitation. Trace mitral regurgitation. Mitral diastolic velocities suggest reduced left ventricular relaxation c/w mild LV diastolic dysfunction (Grade I ). No tricuspid regurgitation. Tricuspid systolic velocities suggests peak right ventricular systolic pressure of 14 mmHg. Trace pulmonic regurgitation present.
--- NOTE | 2017-08-21 14:40 | Cardiology Progress Note ---
Assessment/Plan Assessment/Plan 1. Atypical pain. 2. Hyperlipidemia. 3. Hypertension. trop neg ekg neg even on repeat prelim echo neg echo personally reviewed ok to dc nicola e recommended pt have a routine fu with pmd Subjective Cardiovascular: Denies: chest pain, lightheadedness, palpitations Respiratory: Denies: shortness of breath Gastrointestinal/Abdominal: Denies: abdominal pain Genitourinary: Denies: burning Objective Last 24 Hour Vital Signs Date Time Temp Pulse Resp B/P (MAP) Pulse Ox O2 Delivery O2 Flow Rate FiO2 08/21/17 12:34 97.7 84 18 137/76 98 Room Air 08/21/17 12:00 83 08/21/17 08:35 97.9 87 18 141/98 95 Room Air 08/21/17 08:35 87 141/98 08/21/17 08:00 97 08/21/17 04:21 97.5 66 20 140/95 97 Room Air 08/21/17 04:19 82 18 Room Air 21 08/21/17 03:50 74 08/20/17 23:52 75 08/20/17 23:48 97.7 68 19 139/95 96 Room Air 08/20/17 19:56 97.5 80 19 143/87 98 Room Air 08/20/17 19:54 91 08/20/17 16:09 71 136/90 08/20/17 16:00 97.5 79 19 143/99 99 Room Air 08/20/17 16:00 84 General Appearance: alert, mild distress Neck: supple Cardiovascular: normal rate, regular rhythm Respiratory/Chest: lungs clear, normal breath sounds Abdomen: normal bowel sounds, non tender, soft Extremities: no swelling Intake and Output 08/21/17 08/22/17 19:00 07:00 Intake Total 600 ml Balance 600 ml Intake Oral 600 ml # Voids 2 # Bowel Movements 2 Laboratory Tests Test 08/21/17 06:02 Troponin I 0.001 ng/mL (0.000-0.056) RICO CORRALES Aug 21, 2017 14:40
--- NOTE | 2017-08-21 15:27 | Cardiology Report ---
APPROVED REPORT EKG Measurement Heart [id number] ME [id number] Normal sinus rhythm ST elevation, consider early repolarization, pericarditis, or injury Abnormal ECG
--- NOTE | 2017-08-21 15:33 | Cardiology Report ---
APPROVED REPORT EKG Measurement Heart [id number] PA [id number] Normal sinus rhythm Nonspecific ST abnormality Abnormal ECG
--- NOTE | 2017-08-22 14:30 | Discharge Summary ---
Discharge Summary Hospital Course Date of Admission Aug 19, 2017 at 20:45 Date of Discharge Aug 21, 2017 at 17:40 Admitting Diagnosis chest pain, acute coronary syndrome СЕРГЕЙ Sutton is a 51 year old male who was admitted on Aug 19, 2017 at 20:45 for Chest Pain, Acute Coronary Sydrome Procedures dc summary #[id number] Discharge Medications New Medications: Amlodipine Besylate (Norvasc) 2.5 Mg Tablet 2.5 MG ORAL DAILY for 30 Days, TAB Aspirin* (Aspirin*) 81 Mg Tab.chew 162 MG ORAL DAILY for 30 Days, TAB Continued Medications: Acetaminophen* (Tylenol Extra Strength*) 500 Mg Tablet 500 MG ORAL Q8H PRN for Prn Headache/Temp > 101, #30 TAB 0 Refills Amlodipine Besylate (Norvasc) 5 Mg Tablet 5 MG ORAL DAILY, TAB Cyclobenzaprine Hcl* (Flexeril*) 10 Mg Tablet 10 MG ORAL TID PRN for Muscle Spasm, #20 TAB Discontinued Medications: Acetaminophen* (Tylenol Extra Strength*) 500 Mg Tablet 500 MG ORAL Q6H, #30 TAB 0 Refills Discharge Condition Upon Discharge: stable Discharge Disposition Patient was discharged to Home (01) Discharge Diagnoses: Discharge Instructions Discharge Instructions Special Instructions I have been assigned to complete a D/C Summary on this account. I was not involved in the patient management Ya Mulligan NP (Vanchtein) Aug 22, 2017 14:30
--- NOTE | 2017-08-22 20:15 | Discharge Summary 2 SIG ---
DATE OF ADMISSION: 08/19/2017 DATE OF DISCHARGE: 08/21/2017 REASON FOR ADMISSION: 51-year-old male with a history of hypertension, presented to emergency room with a complaint of chest pain. The patient was a nonsmoker. He denied fever or chills. No coughing. No exertional component. No leg swelling. Pain was described more like a pressure sensation. Vital signs were stable. Pulse oximetry was stable on room air. Troponin was negative. EKG revealed normal sinus rhythm. No acute ischemic changes. Chest x-ray revealed no acute cardiopulmonary pathology. The patient was admitted with chest pain, rule out acute coronary syndrome. HOSPITAL STAY: The patient was admitted to telemetry floor. Cardiology consult was requested. Serial troponin were negative. Repeated EKG still revealed no acute ischemic changes. EKG personally reviewed by funeral arranger who closely followed the patient. Pro BNP -5. Lipid panel revealed elevated total cholesterol -226, elevated LDL -152. D-dimer -0.76. Toxicology screen was negative. Echocardiogram revealed preserved ejection fraction of 55% to 60%, right ventricular systolic pressure of 14, and evidence of left ventricular hypertrophy. Blood pressure was managed with calcium channel dipti, and was stable. Fingernail Former stated that the patient had atypical chest pain and acute myocardial infarction was ruled out. Fingernail Former cleared the patient for discharge. The patient was educated on low-fat low-cholesterol cardiac diet and therapeutic lifestyle changes. Recommended the patient to repeat lipid panel in three months and if still elevated LDL, start statin. At this point, the patient declined statin. The patient was stable for discharge. FINAL DIAGNOSES: 1. Atypical chest pain. 2. Hyperlipidemia. 3. Hypertension. DISCHARGE MEDICATIONS: See medication reconciliation list. DISCHARGE INSTRUCTIONS: The patient was discharged home. Follow up with primary medical doctor. Maureen Moeller M.D. I have been assigned to dictate discharge summary on this account and I was not involved in the patient's management. Ya LockwoodhteinNoelle N.PLizzette DR: CONRAD JOB#: [id number] CC: MAHNAZ
== END 2017-08-21 17:40 | disposition home or self-care (01) | DRG 203 ==
LOC: EMR 18:10 → 2E 20:45 → EDBEDREQ 21:28 → 2E 22:20
DX: R07.89 Other chest pain (principal); I10 Essential (primary) hypertension; E78.5 Hyperlipidemia, unspecified
CPT/HCPCS: 36415; 71010; 80053; 80061; 80307; 83880; 84443; 84484; 85025; 85379; 85610; 85730; 86140; 93005; 93306; 94640; 94664; 99285; J7620